=== PATIENT | female | born 2000 | race Caucasian/White ===

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

== ENCOUNTER 2019-09-03 17:07 | Outpatient (REF) | payer MEDICAID, SELFPAY ==
[2019-09-05 15:19] LABS: Chlamydia Result Negative (Negative); GC Result Negative (Negative)
== END 2019-09-03 17:27 ==
LOC: LBN 17:07
PROVIDERS: PCP Pediatrics; Visit Provider Nurse Practitioner Women's Health
DX: Z11.3 Encounter for screening for infections with a predominantly sexual mode of transmission (principal)
CPT/HCPCS: 87491; 87591

== ENCOUNTER 2019-09-28 14:29 | Outpatient (REF) | payer MEDICAID, SELFPAY | END 2019-09-28 14:49 | LOC: LBN 14:29 | PROVIDERS: PCP Pediatrics; Visit Provider Obstetrics & Gynecology | DX: L02.214 Cutaneous abscess of groin (principal) | CPT/HCPCS: 87070; 87205 ==

== ENCOUNTER 2019-10-19 14:50 | Outpatient (REF) | payer MEDICAID, SELFPAY | END 2019-10-19 15:10 | LOC: LBN 14:50 | PROVIDERS: PCP Pediatrics; Visit Provider Obstetrics & Gynecology | DX: N76.4 Abscess of vulva (principal) | CPT/HCPCS: 87070; 87205 ==

== ENCOUNTER 2020-01-01 18:10 | Outpatient (REF) | payer MEDICAID, SELFPAY | END 2020-01-01 18:30 | LOC: LBN 18:10 | PROVIDERS: PCP Pediatrics; Visit Provider Obstetrics & Gynecology | DX: N82.5 Female genital tract-skin fistulae (principal) | CPT/HCPCS: 87070; 87205 ==

== ENCOUNTER 2020-01-18 02:02 | Outpatient (CLI) | payer MEDICAID, SELFPAY ==
--- NOTE | 2020-01-18 06:30 | DI.CT_ITS ---
EXAM: CT ABDOMEN PELVIS W CLINICAL HISTORY: Rule out fistula. Non-healing vulvar abscess,n82.5,female. TECHNIQUE: Imaging Protocol: Axial computed tomography images with coronal and sagittal reformatted images were created and reviewed CONTRAST MATERIAL: Intravenous: Omnipaque 350 Contrast volume:structured data in ml Oral: yes / no COMPARISON: US US SOFT TISS EXTREMITY/GROIN from 01/18/2020 FINDINGS: ABDOMEN: Lung Bases: Normal where visualized. Liver: Normal density. No measurable mass. Gallbladder and biliary tract: No radiodense calculus or dilation. Pancreas: Normal density, no abnormal calcifications or inflammatory process. Spleen: Normal. Kidneys: Normal size, contour and axis. No radiodense stones or obstructive uropathy. No masses seen. Adrenal glands: No masses seen. Abdominal Aorta: Abdominal portion non-dilated. PELVIS: Bladder: Symmetric distention, no gross wall thickening. Bowel: No obstruction or bowel wall thickening. Peritoneal cavity: No ascites, collection or mesenteric inflammatory response. Bones: Within normal limits. Reproductive organs: Within normal limits. Lymph nodes: Unremarkable. Soft tissues: There is visible skin thickening at the right side of the labia but no evidence an absc ess. There is no evidence of a fistula. Impression: Skin thickening on the right side of the labia. No visible abscess. No evidence of a fistula. Othe rwise unremarkable CT scan of the abdomen and pelvis. RADIATION DOSE DELIVERED: 537.12mGy.cm Total DLP DATA REPOSITORY: All CT scans at this facility are submitted to the National Radiology Data Registry (NRDR) Dose Index Registry (DIR) with the [employer] ([employer]). RADIATION OPTIMIZATION: All CT scans at this facility use at least one of these dose optimization te chniques: automated exposure control; mA and/or kV adjustment per patient size (includes targeted exa ms where dose is matched to clinical indication); or iterative reconstruction.
--- NOTE | 2020-01-18 06:30 | DI.US_ITS ---
EXAM: US SOFT TISS EXTREMITY/GROIN CLINICAL HISTORY: Evaluate non-healing abscess right groin,n82.5,female genital tract skin. TECHNIQUE: Ultrasound was performed using standard protocol. COMPARISON: No exams were available for comparison FINDINGS: Sonographic assessment utilizing grayscale and color Doppler imaging was performed and targeted to th e area of clinical concern. Ill-defined areas of decreased echogenicity are seen in the subcutaneous tissues of the right labia. In the area of the incision, the area measures 2.4 x 0.4 cm. There is no internal blood flow. There i s a 2nd area corresponding to palpable lump which measures 2.9 x 0.5 cm. There is some adjacent blood flow. No focal fluid collection is seen to suggest an abscess. IMPRESSION: Areas of ill-defined decreased echogenicity in the subcutaneous tissues of the right labia. This may represent edema or postsurgical changes. No focal fluid collection is seen to suggest an abscess at t his time. DATA REPOSITORY:
[2020-01-18] MEDS: Omnipaque 350 MG/ML 100 ML BTL IJ (15:45)
[2020-01-18] MEDS: Omnipaque 350 MG/ML 50 ML BTL IJ (15:46)
[2020-01-18] MEDS: Breeza Beverage 473 ML BTL PO (15:48)
== END 2020-01-18 02:22 ==
PROVIDERS: PCP Nurse Practitioner Pediatrics; Visit Provider Obstetrics & Gynecology
DX: N82.5 Female genital tract-skin fistulae (principal); R60.0 Localized edema
CPT/HCPCS: 76882; 74177; J3490; Q9967

== ENCOUNTER 2020-02-18 08:13 | Outpatient (CLI) | payer MEDICAID, SELFPAY ==
[2020-02-19 19:46] LABS: COVID-19 RT-PCR UVMMC Result Negative (Negative)
== END 2020-02-18 08:33 ==
PROVIDERS: PCP Nurse Practitioner Pediatrics; Visit Provider Obstetrics & Gynecology
DX: Z01.818 Encounter for other preprocedural examination (principal); Z11.59 Encounter for screening for other viral diseases
CPT/HCPCS: 36415; 86850; 86900; 86901; U0003; 85025

== ENCOUNTER 2020-02-20 10:36 | Day surgery (SDC) | payer MEDICAID, SELFPAY ==
[2020-02-20] VITALS (7 sets, daily range): BP systolic 102–135; BP diastolic 54–88; PULSE 54–78; RESP 10–16; TEMP 36.6–36.7; O2SAT 95–98
[2020-02-20] MEDS: Lactated Ringers 1,000 ML 125 ML IV (11:27)
[2020-02-20] MEDS: ceFAZolin 1 GM/50 ML BAG IVPB (13:21)
[2020-02-20] MEDS: Bupivacaine 0.25% Pres-Free 30 ML VIAL (13:50)
--- NOTE | 2020-02-20 15:21 | W.PM.DSUDISC ---
Discharge Plan Disposition Patient Disposition: HOME Condition: Good Discharge Details Reason For Visit: Vulvar abscess with fistula formation. Attending Provider: Waylon Rose Primary Care Provider: Miriam Corey Home Meds and New Rx's Prescriptions: New oxycodone-acetaminophen 5-325 mg Tablet 1 tab PO Q4H PRNQty: 25 RF: 0 Continued lamotrigine 50 mg tablet extended release 24hr 50 mg PO DAILY RF: 0 levetiracetam 500 mg tablet 500 mg PO DAILY RF: 0 norethindrone (contraceptive) 0.35 mg tablet 0.35 mg PO DAILY Qty: 84 RF: 5 ibuprofen 600 mg tablet 600 mg PO Q6H PRN (Reason: pain) Qty: 30 RF: 1 clindamycin HCl 150 mg capsule 150 mg PO TID 10 Days Qty: 30 RF: 0 sumatriptan succinate [Imitrex] 50 MG tablet 50 mg PO ONCE PRNQty: 6 RF: 0 albuterol sulfate [ProAir HFA] 8.5 GM HFA aerosol inhaler 2 puff Inhalation Q4H PRN Qty: 1 RF: 3 (DME) Inhaler, Assist Devices [Aerochamber Mini] 1 EACH spacer 1 ea Miscellaneous Q4H PRN Qty: 1 RF: 0 Discharge Instructions Activity:: See sheet Diet:: As Tolerated Discharge Orders Discharge Orders: Discharge Order (Routine); Ordered 02/20/20 Ordered By: Waylon Rose DS: Diagnosis Discharge Diagnosis (1) Vulvar abscess: Status: Acute
--- NOTE | 2020-02-21 12:47 | ROE_ITS ---
Date of service: 02/20/20 Time of Service: 16:00 Operative Note Operative Note DATE OF PROCEDURE: 02/20/20 PRE-OP DIAGNOSIS: 1. 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 Incision and drainage of abscess. 2. Fistulectomy SURGEON: Waylon Rose ASSISTING SURGEON: Crystal Lane ANESTHESIA: GETA ESTIMATED BLOOD LOSS: 50 PATHOLOGY: none sent COMPLICATIONS: None Patient was transported to: PACU Patient's condition: stable Implants: [place] drain x 3 Findings: Induration along the right vulva with 2 fistulous tracts to the crural fold. Procedure Description: The patient was taken to the operating room and after adequate general anesthesia the patient was placed in lithotomy position. The patient was prepped and draped in the usual sterile manner. Exam under anesthesia was performed demonstrating areas of chronic induration from the vulvar abscess along almost the entire length of the right labium majus. In the right crural fold there were 2 fistulous openings. With use of a sterile catheter, methylene blue was injected into each of these fistulas. The superior fistula was noted to fill a defect on the superior aspect of the labium majus. The inferior fistulous tract to the base of the right labia. 3 sites were marked with a marking pen and elliptical incisions were made to open the sites. The tracts of the fistulas were easily identified with the methylene blue. Abscess cavities were opened and debrided back to bleeding tissue. The fistulas were tunneled free and excised through debridement and use of cautery. This was carried out for both the superior and inferior fistulas. When it was felt that each pocket had been satisfactorily debrided back to bleeding tissue and then no remaining epithelialized tract remained each incision was closed with 3-0 Vicryl suture and each had 1/4 inch [place] drain placed. Each David drain was sutured to the skin with a single interrupted suture of 3-0 Vicryl. A right pudendal block was performed with 10 cc of 0.25% Marcaine solution prior to completing the case. Sponge, lap and needle counts were correct at the conclusion of the procedure and the patient was transferred to PACU in stable condition.
== END 2020-02-20 16:37 | disposition home or self-care (01) ==
PROVIDERS: PCP Nurse Practitioner Pediatrics; Visit Provider Obstetrics & Gynecology
PROC: (CPT 56740; principal; 2020-02-20 12:00)
DX: N76.4 Abscess of vulva (principal); L98.8 Other specified disorders of the skin and subcutaneous tissue
CPT/HCPCS: 11420; 56405; 81025; J0690; J1100; J1885; J2001; J2250; J2405; J2704

== ENCOUNTER 2021-08-29 17:09 | Emergency (ER) | payer MEDICAID, SELFPAY ==
[2021-08-29 17:14] VITALS: BP 117/83; PULSE 119; RESP 18; TEMP 37.6; O2SAT 95
[2021-08-29 17:44] LABS: Bilirubin Negative (Negative); Blood Trace-intact (Negative); Clarity Clear (Clear); Glucose Negative (Negative); Ketones Negative (Negative); Leukocyte Esterase Negative (Negative); Nitrite Negative (Negative); Specific Gravity 1.025 (1.005-1.025); Urobilinogen 0.2 EU/dL (Up TO 0.2)
[2021-08-29] MEDS: Normal Saline 1,000 ML 1000 ML IV ×2 (17:48→18:27)
[2021-08-29] MEDS: Ondansetron 4 MG/2 ML VIAL IVP (17:49)
[2021-08-29 17:53] LABS: Bacteria Negative HPF (Negative); C & S Indicated? No; Casts Negative LPF (Negative); Crystals Negative HPF (Negative); Epithelial Cells Few HPF (Negative); Mucus Negative (Negative); Other Cells Negative (Negative); WBC 0-2 HPF (0-5)
[2021-08-29 18:16] LABS: Abs Immature Grans 0.04 10^3/uL (0.0-0.06); Absolute Basophil Count 0.03 10^3/uL (0.0-0.2); Absolute Eosinophil Count 0.02 10^3/uL (0.0-0.7); Absolute Lymphocyte Count 0.47 10^3/uL (1.2-3.4); Absolute Monocyte Count 1.27 10^3/uL (0.1-0.8); Absolute Neutrophil Count 7.55 10^3/uL (1.2-6.7); Basophils % 0.3; Eosinophils % 0.2; HCT 42.9 % (36.0-46.0); HGB 14.7 g/dL (11.2-15.7); Immature Grans % 0.4; MCH 32.2 pg (27.0-33.0); MCHC 34.3 % (32.0-36.0); MCV 93.9 fL (80-95); MPV 9.1 fL (8.0-11.0); Monocytes % 13.5; Neutrophils % 80.6; Nucleated RBC 0 %; Platelet Count 236 10^3/uL (130-400); RBC 4.57 10^6/uL (3.93-5.22); RDW 11.2 % (11.7-14.6); RDW-SD 38.5 fL; WBC 9.38 10^3/uL (4.4-10.8)
[2021-08-29 18:25] LABS: ETHANOL BLOOD 3.1 mg/dL (<10)
[2021-08-29] MEDS: Ketorolac 30 MG/ML VIAL IVP (18:27)
[2021-08-29 18:29] LABS: ALT 36 U/L (14-59); AST 32 U/L (15-37); Albumin 4.4 g/dL (3.4-5.0); Alkaline Phosphatase 65 U/L (46-116); Anion Gap 10.4 mmol/L (3-11); BUN 10 mg/dL (7-18); Bilirubin, Total 0.3 mg/dL (0.2-1.0); CO2 26.6 mmol/L (21.0-32.0); CREATININE 0.8 mg/dL (0.55-1.02); Calcium 8.9 mg/dL (8.5-10.1); Chloride 102 mmol/L (98-107); Glucose 94 mg/dL (74-106); Lipase 48 U/L (73-393); Potassium 3.8 mmol/L (3.5-5.1); Sodium 139 mmol/L (136-145); Total Protein 8.1 g/dL (6.4-8.2)
--- NOTE | 2021-08-29 18:57 | W.ED.GENAD ---
Discharge Plan Disposition Patient Disposition: HOME Condition: Improving Discharge Details Clinical Impression: Myalgia Primary Care Provider: Ruby Willams ED Provider: Shaun Bender Home Meds and New Rx's Prescriptions: Continued lamotrigine 50 mg tablet extended release 24hr 50 mg PO DAILY RF: 0 norethindrone (contraceptive) 0.35 mg tablet 0.35 mg PO DAILY Qty: 84 RF: 5 ibuprofen 600 mg tablet 600 mg PO Q6H PRN (Reason: pain) Qty: 30 RF: 1 naltrexone 50 mg tablet 50 mg PO DAILY Qty: 30 RF: 5 albuterol sulfate [ProAir HFA] 8.5 GM HFA aerosol inhaler 2 puff Inhalation Q4H PRN Qty: 1 RF: 3 (DME) Inhaler, Assist Devices [Aerochamber Mini] 1 EACH spacer 1 ea Miscellaneous Q4H PRN Qty: 1 RF: 0 Discharge Instructions Additional Instructions: At this time your laboratory values do not reveal any obvious emergent process. Your Covid test is pending, I recommend if you quarantine until this test has resulted negative hopefully in the next 2-3 days. Rest, plenty of fluids to avoid dehydration, [id number] Tylenol and/or Motrin as directed for discomfort. Please watch for new or worsening symptoms and return to the ER for any concerns. Lastly, please reach out your primary care provider on Tuesday to make them aware of the ER visit, ongoing symptoms, need for outpatient reevaluation Medical Decision Making 20-year-old female presents for evaluation of subjective fever, feeling chills, myalgias, worse in her back and lower extremities, vomiting x1. Significant other with similar symptoms couple of days ago. Patient clinically appears well, nontoxic, neurologically intact, afebrile. She is questioning how long her ER visit will be and is concerned about the person waiting for her. I explained to her given her subjective complaints, lack of p.o. intake, I believe obtaining IV access, giving IV Zofran and fluids and obtain routine laboratory values is reasonable. Given her subjective fever, chills, myalgias, will also obtain a send out Covid swab. She is comfortable with this plan. Laboratory values are unremarkable for any obvious emergent process. No leukocytosis or anemia. No electrolyte abnormality. Creatinine 0.8 with a GFR greater than 60. Patient with trace blood in her urine, 5-10 red cells. Examination is not consistent with renal stone. Patient received 1 L IV fluid, heart rate now 96. She reports no nausea or vomiting while here. She was given IV Toradol as well. After she received the fluid, reports that only mild pain in her back remains but there is no aching in her legs whatsoever. Patient then received her Toradol and reported that she was essentially asymptomatic and requesting discharge. Send out Covid is pending, recommend quarantining until this has resulted negative. Discussed the importance of resting, adequate hydration, [id number] medications such as Tylenol and/or Motrin. Encouraged to return to the ER for new or worsening symptoms, otherwise she will reach out to her primary care provider on Tuesday to discuss her ER visit need for outpatient reevaluation. Patient without any additional questions or concerns and is comfortable with this plan. Standard discharge and return precautions. This documentation was generated using [employer] dictation system, please disregard any oddities of phrase or misspellings. Medical Records Medical records reviewed: Yes I reviewed the patient's medical records. Lab Data Lab results reviewed: Yes I reviewed the patient's lab results. Labs: Laboratory Tests Range/Units 08/29/21 08/29/21 08/29/21 17:30 17:45 17:45 WBC (4.4-10.8) 10^3/uL 9.38 RBC (3.93-5.22) 10^6/uL 4.57 Hgb (11.2-15.7) g/dL 14.7 Hct (36.0-46.0) % 42.9 MCV (80-95) fL 93.9 MCH (27.0-33.0) pg 32.2 MCHC (32.0-36.0) % 34.3 RDW (11.7-14.6) % 11.2 L Plt Count (130-400) 10^3/uL 236 MPV (8.0-11.0) fL 9.1 Immature Gran % 0.4 Neutrophils % 80.6 Lymphocytes % 5.0 Monocytes % 13.5 Eosinophils % 0.2 Basophils % 0.3 Nucleated RBC % % 0 Absolute Neutrophils (1.2-6.7) 10^3/uL 7.55 H Absolute Lymphocytes (1.2-3.4) 10^3/uL 0.47 L Absolute Monocytes (0.1-0.8) 10^3/uL 1.27 H Absolute Eosinophils (0.0-0.7) 10^3/uL 0.02 Absolute Basophils (0.0-0.2) 10^3/uL 0.03 Sodium (136-145) mmol/L 139 Potassium (3.5-5.1) mmol/L 3.8 Chloride (98-107) mmol/L 102 Carbon Dioxide (21.0-32.0) mmol/L 26.6 Anion Gap (3-11) mmol/L 10.4 BUN (7-18) mg/dL 10 Creatinine (0.55-1.02) mg/dL 0.8 Estimated GFR/1.73 m2 (mL/min/1.73m2) >= 60.00 Glucose (74-106) mg/dL 94 Calcium (8.5-10.1) mg/dL 8.9 Total Bilirubin (0.2-1.0) mg/dL 0.3 AST (15-37) U/L 32 ALT (14-59) U/L 36 Alkaline Phosphatase (46-116) U/L 65 Total Protein (6.4-8.2) g/dL 8.1 Albumin (3.4-5.0) g/dL 4.4 Lipase (73-393) U/L 48 Urine Color (Yellow) Yellow Urine Clarity (Clear) Clear Urine pH (5-8) 7.0 Ur Specific [place] (1.005-1.025) 1.025 Urine Protein (Negative) mg/dL Negative Urine Ketones (Negative) mg/dL Negative Urine Blood (Negative) Trace-intact H Urine Nitrite (Negative) Negative Urine Bilirubin (Negative) Negative Urine Urobilinogen (Up TO 0.2) EU/dL 0.2 Ur Leukocyte Esterase (Negative) Negative Urine RBC (0-2) HPF 5-10 H Urine WBC (0-5) HPF 0-2 Ur Epithelial Cells (Negative) HPF Few Urine Crystals (Negative) HPF Negative Urine Bacteria (Negative) HPF Negative Urine Casts (Negative) LPF Negative Urine Mucus (Negative) Negative Urine Other (Negative) Negative Ur Culture Indicated? No Urine Glucose (Negative) mg/dL Negative Ethyl Alcohol (<10) mg/dL Range/Units 08/29/21 08/29/21 17:45 18:06 WBC (4.4-10.8) 10^3/uL RBC (3.93-5.22) 10^6/uL Hgb (11.2-15.7) g/dL Hct (36.0-46.0) % MCV (80-95) fL MCH (27.0-33.0) pg MCHC (32.0-36.0) % RDW (11.7-14.6) % Plt Count (130-400) 10^3/uL MPV (8.0-11.0) fL Immature Gran % Neutrophils % Lymphocytes % Monocytes % Eosinophils % Basophils % Nucleated RBC % % Absolute Neutrophils (1.2-6.7) 10^3/uL Absolute Lymphocytes (1.2-3.4) 10^3/uL Absolute Monocytes (0.1-0.8) 10^3/uL Absolute Eosinophils (0.0-0.7) 10^3/uL Absolute Basophils (0.0-0.2) 10^3/uL Sodium (136-145) mmol/L Potassium (3.5-5.1) mmol/L Chloride (98-107) mmol/L Carbon Dioxide (21.0-32.0) mmol/L Anion Gap (3-11) mmol/L BUN (7-18) mg/dL Creatinine (0.55-1.02) mg/dL Estimated GFR/1.73 m2 (mL/min/1.73m2) Glucose (74-106) mg/dL Calcium (8.5-10.1) mg/dL Total Bilirubin (0.2-1.0) mg/dL AST (15-37) U/L ALT (14-59) U/L Alkaline Phosphatase (46-116) U/L Total Protein (6.4-8.2) g/dL Albumin (3.4-5.0) g/dL Lipase (73-393) U/L Urine Color (Yellow) Cancelled Urine Clarity (Clear) Cancelled Urine pH (5-8) Cancelled Ur Specific [place] (1.005-1.025) Cancelled Urine Protein (Negative) mg/dL Cancelled Urine Ketones (Negative) mg/dL Cancelled Urine Blood (Negative) Cancelled Urine Nitrite (Negative) Cancelled Urine Bilirubin (Negative) Cancelled Urine Urobilinogen (Up TO 0.2) EU/dL Cancelled Ur Leukocyte Esterase (Negative) Cancelled Urine RBC (0-2) HPF Urine WBC (0-5) HPF Ur Epithelial Cells (Negative) HPF Urine Crystals (Negative) HPF Urine Bacteria (Negative) HPF Urine Casts (Negative) LPF Urine Mucus (Negative) Urine Other (Negative) Ur Culture Indicated? Urine Glucose (Negative) mg/dL Cancelled Ethyl Alcohol (<10) mg/dL 3.1 HPI General Mode of arrival: ambulatory. Date/Time Provider Initiated Documentation: 08/29/21 17:09. Limitations to Documentation: no limitations. Information obtained by: patient. HPI Narrative: This is a 20-year-old female, past medical history of seizure disorder, vapes and drinks alcohol daily, not vaccinated against Covid, presenting to the ER reporting subjective fever, feels chilled, body aches worse in her lower back and radiates down both legs. Patient states that her symptoms began this morning. She vomited x1 today. She states that her significant other had similar symptoms just a couple of days ago but his symptoms have resolved. She denies a documented fever, headache, neck pain, sore throat, cough, shortness of breath, abdominal pain, dysuria, hematuria, vaginal bleeding or discharge. Patient states that she took Tylenol x1 this morning. Denies any rash, swelling in her legs. She denies any p.o. intake Related Data Home Medications Medication Instructions Recorded Confirmed albuterol sulfate [ProAir HFA] 2 puff INHALATION Q4H PRN #1 06/21/17 08/29/21 inhaler lamotrigine 50 mg tablet,extended 50 mg PO DAILY tab 06/21/18 08/29/21 release 24 hr norethindrone (contraceptive) 0.35 0.35 mg PO DAILY #84 tab 09/03/19 08/29/21 mg tablet ibuprofen 600 mg tablet 600 mg PO Q6H PRN #30 tab 02/08/20 08/29/21 naltrexone 50 mg tablet 50 mg PO DAILY #30 tab 08/04/21 08/29/21 Previous Rx's Medication Instructions Recorded albuterol sulfate [ProAir HFA] 2 puff INHALATION Q4H PRN #1 06/21/17 inhaler norethindrone (contraceptive) 0.35 0.35 mg PO DAILY #84 tab 09/03/19 mg tablet ibuprofen 600 mg tablet 600 mg PO Q6H PRN #30 tab 02/08/20 naltrexone 50 mg tablet 50 mg PO DAILY #30 tab 08/04/21 Allergies Allergy/AdvReac Type Severity Reaction Status Date / Time No Known Allergies Allergy Verified 08/29/21 17:18 General Stated Complaint: Fever MARGARITA: 3 Review of Systems Constitutional Constitutional: Denies headache(s) ENT Ears, Nose, Mouth, and Throat: Denies headache(s) and Denies neck pain Cardiovascular Cardiovascular: Denies chest pain and Denies dyspnea Respiratory Respiratory: Denies cough and Denies dyspnea Gastrointestinal Gastrointestinal: Denies abdominal pain Genitourinary Genitourinary: Denies dysuria Musculoskeletal Musculoskeletal: Reports back pain and Denies neck pain Neurologic Neurologic: Denies headache(s) PFSH All Active Problems Myalgia (Acute) Alcohol intake above recommended sensible limits (Acute) Exercise-induced asthma (Acute 05/27/15) Seizure disorder (Chronic) is followed closely by neuro - no particular concerns today. no seizures since started meds Tobacco use (Acute) Vapes- 8000 puffs Medical History Acute alcohol intoxication (06/09/14) ADHD (attention deficit hyperactivity disorder) focalin previously, stopped 2018 Anxiety Astigmatism (10/01/14) glasses Concussion (05/25/13) Depressive disorder (06/09/14) Age 15-stable not on meds Female genital tract-skin fistula abscess- 2019 History of self injurious behavior Age 15 Osteochondropathy (05/18/12) Temporal lobe epilepsy Dr. Sheffield at [facility] f/u has grand mal seizures in her sleep, controlled with meds, last seizure 06/10/18. Surgical History Arthroplasty of knee cyst removed left knee- 1999 Family History Other Essential hypertension maternal side Heart disease MGF Hyperlipidemia PGM Neoplasm Stroke mat great GF Asthma mat aunt Mother Essential hypertension Personal history of malignant neoplasm cervical Mental disorder Sister Mental disorder Father Substance abuse Diabetes Mental disorder Asthma Grandparent Essential hypertension Diabetes Hyperlipidemia Mental disorder Neoplasm Brother No problems noted. Maternal Grandfather No problems noted. Paternal Grandfather No problems noted. Maternal Grandmother No problems noted. 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 Pets and animals: Yes Pets and animals: cat(s), dog(s) and ferret(s) Sexually active: Yes Do you think of yourself as: straight/heterosexual Current gender identity: female What is your relationship status?: living with partner How often do you talk on the phone with friends or family?: decline to answer How often do you get together with friends or relatives?: decline to answer How often do you attend episcopal or synagogue services?: decline to answer Do you belong to any clubs or organized social groups?: no Panel score (0-1 are the most socially isolated patients): 1 What type of physical activity do you participate in: none Adri/Nondenominational: No preference Special adri needs: No Seatbelt use: always Helmet use: Yes Helmet use: always Drive intox or ride w/intox armored car guard and driver: No Do you feel safe at home: Yes Do you feel safe in your relationship?: Yes Exam Const General: cooperative, healthy appearing, comfortable and no acute distress Orientation: alert and awake [facility] Head: normal to inspection, normocephalic and atraumatic Face and sinus: normal facial exam Mouth: moist mucous membranes abnormal (Slightly dry) Throat: posterior oropharynx normal Eyes General: appearance normal, both eyes and all related structures Conjunctivae: conjunctivae normal Neck Neck: normal visual inspection, full ROM, no meningeal signs, trachea midline and supple Resp Effort & Inspection: normal respiratory effort and able to speak in complete sentences Auscultation: clear to auscultation bilaterally Cardio Rate: regular rate (92) Rhythm: regular rhythm GI Inspection: normal to inspection Palpation: soft, not firm, no guarding, no pulsatile masses and nontender Auscultation: normal bowel sounds Back/Spine/Pelvis Back: back tenderness Skin General skin exam: no rashes or lesions noted Neuro General: patient alert, patient awake, patient oriented x3, moves all extremities and no focal motor deficits Cognition: normal cognition Speech: speech normal Gait: normal gait Motor: muscle tone normal throughout Sensory Exam: no sensory deficits noted Extrem General: normal to inspection, full ROM, capillary refill normal, no pedal edema and no calf tenderness Psych Appearance: grossly normal Mental Status: mental status grossly normal Course Vital Signs Vital signs: Vital Signs Temperature 37.6 C 08/29/21 17:14 Pulse 119 H 08/29/21 17:14 Respiratory Rate 18 08/29/21 17:14 Blood Pressure 117/83 08/29/21 17:14 Pulse Oximetry 95 08/29/21 17:14 Temperature 37.6 C 08/29/21 17:14 Temperature Source Oral 08/29/21 17:14 Pulse 119 H 08/29/21 17:14 Respiratory Rate 18 08/29/21 17:14 Respiratory Effort 08/29/21 17:20 Blood Pressure 117/83 08/29/21 17:14 Blood Pressure Position Sitting 08/29/21 17:14 Pulse Oximetry 95 08/29/21 17:14 Oxygen Delivery Method Room Air 08/29/21 17:14 Oxygen Flow Rate 0 08/29/21 17:14 Lab/Test Results Lab/Test Results: Laboratory Tests Range/Units 08/29/21 08/29/21 08/29/21 17:30 17:45 17:45 WBC (4.4-10.8) 10^3/uL 9.38 RBC (3.93-5.22) 10^6/uL 4.57 Hgb (11.2-15.7) g/dL 14.7 Hct (36.0-46.0) % 42.9 MCV (80-95) fL 93.9 MCH (27.0-33.0) pg 32.2 MCHC (32.0-36.0) % 34.3 RDW (11.7-14.6) % 11.2 L Plt Count (130-400) 10^3/uL 236 MPV (8.0-11.0) fL 9.1 Immature Gran % 0.4 Neutrophils % 80.6 Lymphocytes % 5.0 Monocytes % 13.5 Eosinophils % 0.2 Basophils % 0.3 Nucleated RBC % % 0 Absolute Neutrophils (1.2-6.7) 10^3/uL 7.55 H Absolute Lymphocytes (1.2-3.4) 10^3/uL 0.47 L Absolute Monocytes (0.1-0.8) 10^3/uL 1.27 H Absolute Eosinophils (0.0-0.7) 10^3/uL 0.02 Absolute Basophils (0.0-0.2) 10^3/uL 0.03 Sodium (136-145) mmol/L 139 Potassium (3.5-5.1) mmol/L 3.8 Chloride (98-107) mmol/L 102 Carbon Dioxide (21.0-32.0) mmol/L 26.6 Anion Gap (3-11) mmol/L 10.4 BUN (7-18) mg/dL 10 Creatinine (0.55-1.02) mg/dL 0.8 Estimated GFR/1.73 m2 (mL/min/1.73m2) >= 60.00 Glucose (74-106) mg/dL 94 Calcium (8.5-10.1) mg/dL 8.9 Total Bilirubin (0.2-1.0) mg/dL 0.3 AST (15-37) U/L 32 ALT (14-59) U/L 36 Alkaline Phosphatase (46-116) U/L 65 Total Protein (6.4-8.2) g/dL 8.1 Albumin (3.4-5.0) g/dL 4.4 Lipase (73-393) U/L 48 Urine Color (Yellow) Yellow Urine Clarity (Clear) Clear Urine pH (5-8) 7.0 Ur Specific [place] (1.005-1.025) 1.025 Urine Protein (Negative) mg/dL Negative Urine Ketones (Negative) mg/dL Negative Urine Blood (Negative) Trace-intact H Urine Nitrite (Negative) Negative Urine Bilirubin (Negative) Negative Urine Urobilinogen (Up TO 0.2) EU/dL 0.2 Ur Leukocyte Esterase (Negative) Negative Urine RBC (0-2) HPF 5-10 H Urine WBC (0-5) HPF 0-2 Ur Epithelial Cells (Negative) HPF Few Urine Crystals (Negative) HPF Negative Urine Bacteria (Negative) HPF Negative Urine Casts (Negative) LPF Negative Urine Mucus (Negative) Negative Urine Other (Negative) Negative Ur Culture Indicated? No Urine Glucose (Negative) mg/dL Negative Ethyl Alcohol (<10) mg/dL Range/Units 08/29/21 08/29/21 17:45 18:06 WBC (4.4-10.8) 10^3/uL RBC (3.93-5.22) 10^6/uL Hgb (11.2-15.7) g/dL Hct (36.0-46.0) % MCV (80-95) fL MCH (27.0-33.0) pg MCHC (32.0-36.0) % RDW (11.7-14.6) % Plt Count (130-400) 10^3/uL MPV (8.0-11.0) fL Immature Gran % Neutrophils % Lymphocytes % Monocytes % Eosinophils % Basophils % Nucleated RBC % % Absolute Neutrophils (1.2-6.7) 10^3/uL Absolute Lymphocytes (1.2-3.4) 10^3/uL Absolute Monocytes (0.1-0.8) 10^3/uL Absolute Eosinophils (0.0-0.7) 10^3/uL Absolute Basophils (0.0-0.2) 10^3/uL Sodium (136-145) mmol/L Potassium (3.5-5.1) mmol/L Chloride (98-107) mmol/L Carbon Dioxide (21.0-32.0) mmol/L Anion Gap (3-11) mmol/L BUN (7-18) mg/dL Creatinine (0.55-1.02) mg/dL Estimated GFR/1.73 m2 (mL/min/1.73m2) Glucose (74-106) mg/dL Calcium (8.5-10.1) mg/dL Total Bilirubin (0.2-1.0) mg/dL AST (15-37) U/L ALT (14-59) U/L Alkaline Phosphatase (46-116) U/L Total Protein (6.4-8.2) g/dL Albumin (3.4-5.0) g/dL Lipase (73-393) U/L Urine Color (Yellow) Cancelled Urine Clarity (Clear) Cancelled Urine pH (5-8) Cancelled Ur Specific [place] (1.005-1.025) Cancelled Urine Protein (Negative) mg/dL Cancelled Urine Ketones (Negative) mg/dL Cancelled Urine Blood (Negative) Cancelled Urine Nitrite (Negative) Cancelled Urine Bilirubin (Negative) Cancelled Urine Urobilinogen (Up TO 0.2) EU/dL Cancelled Ur Leukocyte Esterase (Negative) Cancelled Urine RBC (0-2) HPF Urine WBC (0-5) HPF Ur Epithelial Cells (Negative) HPF Urine Crystals (Negative) HPF Urine Bacteria (Negative) HPF Urine Casts (Negative) LPF Urine Mucus (Negative) Urine Other (Negative) Ur Culture Indicated? Urine Glucose (Negative) mg/dL Cancelled Ethyl Alcohol (<10) mg/dL 3.1 POC- Test(urine) Negative PAWSS Have you Been Recently Intoxicated or Drunk Within the Last 30 days?: Yes Have you Ever Experienced Previous Episodes of Alcohol Withdrawal?: No Have you ever Experienced Withdrawal Seizures?: No Have you ever Experienced Delirium Tremens(DT)s?: No Have you ever undergone Alcohol Rehabilitation Treatment (i.e, inpt ot outpatient treatment programs)?: No Have you ever Combined Alcohol with other Downers within the last 90 days?: No Have you ever Combined Alcohol with any other Substance of Abuse during the last 90 days?: No Result: 1
[2021-08-29 19:22] VITALS: PULSE 87; RESP 16; O2SAT 96
[2021-08-31 11:56] LABS: COVID-19 RT-PCR UVMMC Result Positive (Negative)
--- NOTE | 2021-08-31 12:56 | W.ED.FU ---
Follow Up Plan: Patient contacted over the phone regarding her positive Covid test. Patient reports that she continues to have a sore throat but is overall feeling better, has not had further fevers. Counseled patient regarding return to emergency department precautions, home care, and importance of isolation to prevent transmission and outpatient follow-up. Patient verbalized understanding. All questions answered.
== END 2021-08-29 19:21 | disposition home or self-care (01) ==
PROVIDERS: Emergency Provider Physician Assistant; PCP Nurse Practitioner
DX: U07.1 COVID-19 (principal); R68.83 Chills (without fever); M79.18 Myalgia, other site; R11.10 Vomiting, unspecified
CPT/HCPCS: 36415; 80053; 81025; 83690; 96361; 96374; 96375; 99284; U0003; 80320; 81003; 81015; 85025; 99283; J1885; J2405

== ENCOUNTER 2021-11-17 16:17 | Outpatient (REF) | payer MEDICAID, SELFPAY ==
--- NOTE | 2021-11-17 16:08 | PAPFT_PTH ---
PATIENT: Yesi Guerrero LOC: [facility] U#:[id number] AGE/SX: 21/ ROOM: RE11/17/[address]: Lisa Dumont MD : 2000 BED: DIS: 11/17/2021 SPEC #: [id number] RECD: 11/17/21 18:14 STATUS: LUCILA REDayana #: [id number] LATOSHA: 11/17/21 16:[address]: Lisa Dumont DEPT: [facility] Cytology RECD BY: Ginny Saez ENTERED: 11/17/21 18:14 SP TYPE: PAPFT OTHR DR: Ruby Willams, PhD INSTRUMENT INSTALLER Tissues: 1 - CX/ENDOCX FOR PAP SMEARS Procedures: PAP THIN PREP/[facility] Screening Comments: [id number] (CHLAMYDIA/GC)
[2021-11-18 15:30] LABS: Chlamydia Result Negative (Negative); GC Result Negative (Negative)
[2021-11-19 15:00] LABS: Chlamydia Result Negative (Negative); GC Result Negative (Negative)
== END 2021-11-17 16:18 | disposition home or self-care (01) ==
LOC: LBN 16:17
PROVIDERS: PCP Nurse Practitioner; Visit Provider Obstetrics & Gynecology
DX: R10.2 Pelvic and perineal pain (principal); N89.8 Other specified noninflammatory disorders of vagina; Z11.3 Encounter for screening for infections with a predominantly sexual mode of transmission; Z12.4 Encounter for screening for malignant neoplasm of cervix
CPT/HCPCS: 87491; 87591; 88142; 87480; 87510; 87660

== ENCOUNTER 2022-03-30 19:22 | Emergency (ER) | payer MEDICAID, SELFPAY ==
[2022-03-30 19:24] VITALS: BP 123/78; PULSE 89; RESP 18; TEMP 36.9; O2SAT 100
--- NOTE | 2022-03-30 20:01 | W.ED.GENAD ---
Discharge Plan Disposition Patient Disposition: HOME Condition: Stable Discharge Details Clinical Impression: Pharyngitis Primary Care Provider: Ruby Willams ED Provider: Freeman Gama Home Meds and New Rx's Prescriptions: No Action lamotrigine 50 mg tablet extended release 24hr 50 mg PO DAILY ibuprofen 600 mg tablet 600 mg PO Q6H PRN (Reason: pain) Qty: 30 1RF naltrexone 50 mg tablet 50 mg PO DAILY Qty: 30 5RF Rx Instructions: 08/29/20 has not started norethindrone (contraceptive) 0.35 mg tablet 0.35 mg PO DAILY Qty: 84 5RF Label Comments: Pt reports I stopped taking it, so i wouldn't be wasting is, since I'm not having sex.HE metronidazole 500 mg tablet 500 mg PO BID Qty: 14 0RF albuterol sulfate [ProAir HFA] 8.5 GM HFA aerosol inhaler 2 puff Inhalation Q4H PRN Qty: 1 3RF Rx Instructions: 2 puffs with spacer every 4hr as needed for cough/wheeze (DME) Inhaler, Assist Devices [Aerochamber Mini] 1 EACH spacer 1 ea Miscellaneous Q4H PRN Qty: 1 0RF Rx Instructions: use with inhaler every 4hr as needed Discharge Instructions Instructions: Pharyngitis (ED) Additional Instructions: Continue to take the [id number] medications as discussed. If you have any new or significant worsening of symptoms feel free to return the emergency department for reassessment. We will contact you with your COVID results which typically take around 48 hours but may take longer depending on lab timing. Stand Alone Forms: Work Release Referrals: Ruby Willams, [employer]ICE PL[employer]BER [Primary Care Provider] - 1 week (As needed for reassessment or if not improving) Medical Decision Making Exam consistent with Pharyngitis. 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 Pt non toxic and stable. Patient reports that she had rapid testing for COVID performed but work is requesting PCR. PCR testing was sent but due to patient had a strep testing also done earlier today that was negative will not repeat this testing. Fever chills along with body aches and sore throat consistent with viral etiology. Exam does not seem consistent with bacterial so we will hold off on antibiotics. Encourage continue some [id number] medications with monitoring and follow-up precautions. Patient does have history of tonsillar stones which were noted in the right tonsil but I do not feel that this is causing patient's febrile illness. Patient recommend to follow-up with ENT and perform gargles for tonsillar stones. After discussion of diagnosis and plan of care patient has no further needs, questions, or concerns and states clear understanding to return to the emergency department for any worsening symptoms. This documentation was generated using TeamSnapation system, please disregard any oddities of phrase or misspellings. HPI General Mode of arrival: ambulatory. Date/Time Provider Initiated Documentation: 03/30/22 19:25. Limitations to Documentation: no limitations. Information obtained by: patient and RN notes reviewed. History of Present Illness 21 year old F presents to the emergency department with the chief complaint of Sore throat, described as moderate, with intensity rated at 6. Quality is described as aching, and is localized to the neck. Patient reports no radiation. Patient started experiencing this day(s) (3) and it has been constant. No relieving factors improve symptom(s), No exacerbating factors reported . Patient notes fever/chills; denies chest pain, cough, loss of appetite, nausea/vomiting and rash. Patient did receive the following treatments prior to arrival, NSAID Related Data Home Medications Medication Instructions Recorded Confirmed albuterol sulfate 90 mcg/actuation 2 puff inhalation Q4H PRN ##1 06/21/17 03/30/22 aerosol inhaler (ProAir HFA) lamotrigine 50 mg tablet,extended 50 mg PO DAILY 06/21/18 11/17/21 release 24 hr ibuprofen 600 mg tablet 600 mg PO Q6H PRN pain #30 tabs 02/08/20 11/17/21 naltrexone 50 mg tablet 50 mg PO DAILY #30 tabs 08/04/21 11/17/21 metronidazole 500 mg tablet 500 mg PO BID #14 tabs 11/17/21 11/17/21 norethindrone (contraceptive) 0.35 0.35 mg PO DAILY #84 tabs 11/17/21 03/30/22 mg tablet Previous Rx's Medication Instructions Recorded albuterol sulfate 90 mcg/actuation 2 puff inhalation Q4H PRN ##1 06/21/17 aerosol inhaler (ProAir HFA) ibuprofen 600 mg tablet 600 mg PO Q6H PRN pain #30 tabs 02/08/20 naltrexone 50 mg tablet 50 mg PO DAILY #30 tabs 08/04/21 metronidazole 500 mg tablet 500 mg PO BID #14 tabs 11/17/21 norethindrone (contraceptive) 0.35 0.35 mg PO DAILY #84 tabs 11/17/21 mg tablet Allergies Allergy/AdvReac Type Severity Reaction Status Date / Time No Known Allergies Allergy Verified 11/17/21 15:30 General Stated Complaint: Sorethroat MARGARITA: 4 Review of Systems Constitutional Constitutional: Reports body ache(s), Reports chills, Reports fever(s), Denies headache(s) and Denies malaise ENT Ears, Nose, Mouth, and Throat: Reports as per HPI, Denies otalgia, Denies headache(s), Denies lip swelling, Reports nasal congestion, Denies nasal discharge, Denies neck pain, Reports sore throat, Denies throat swelling and Denies tongue swelling Cardiovascular Cardiovascular: Denies chest pain and Denies dyspnea Respiratory Respiratory: Denies cough, Denies dyspnea and Denies stridor Gastrointestinal Gastrointestinal: Denies abdominal pain, Denies diarrhea, Denies nausea and Denies vomiting Musculoskeletal Musculoskeletal: Denies back pain, Denies joint swelling and Denies neck pain Integumentary/Breasts Skin/Breast: Denies rash Neurologic Neurologic: Denies headache(s) Allergic/Immunologic Allergic/Immunologic: Denies lip swelling, Denies throat swelling and Denies tongue swelling PFSH All Active Problems Pharyngitis (Acute) Vaginitis (Acute) Exercise-induced asthma (Acute 05/27/15) Tobacco use (Acute) Vapes- 8000 puffs Medical History Acute alcohol intoxication (06/09/14) ADHD (attention deficit hyperactivity disorder) focalin previously, stopped 2018 Anxiety Astigmatism (10/01/14) glasses Concussion (05/25/13) Depressive disorder (06/09/14) Age 15-stable not on meds Female genital tract-skin fistula abscess- 2020 History of self injurious behavior Age 15 Osteochondropathy (05/18/12) Temporal lobe epilepsy Dr. Sheffield at [facility] f/u has grand mal seizures in her sleep, controlled with meds, last seizure 06/10/18. Surgical History Arthroplasty of knee cyst removed left knee- 1999 Family History Other Essential hypertension maternal side Heart disease MGF Hyperlipidemia PGM Neoplasm Stroke mat great GF Asthma mat aunt Mother Essential hypertension Personal history of malignant neoplasm cervical Mental disorder Sister Mental disorder Father Substance abuse Diabetes Mental disorder Asthma Grandparent Essential hypertension Diabetes Hyperlipidemia Mental disorder Neoplasm Brother No problems noted. Maternal Grandfather No problems noted. Paternal Grandfather No problems noted. Maternal Grandmother No problems noted. 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 Pets and animals: Yes Pets and animals: cat(s), dog(s) and ferret(s) Sexually active: Yes Do you think of yourself as: straight/heterosexual Current gender identity: female What is your relationship status?: living with partner How often do you talk on the phone with friends or family?: decline to answer How often do you get together with friends or relatives?: decline to answer How often do you attend voodoo or mandaeism services?: decline to answer Do you belong to any clubs or organized social groups?: no Panel score (0-1 are the most socially isolated patients): 1 What type of physical activity do you participate in: none Adri/Cheondoism: No preference Special adri needs: No Seatbelt use: always Helmet use: Yes Helmet use: always Drive 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 or ride w/intox 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: No Do you feel safe at home: Yes Do you feel safe in your relationship?: Yes Exam Const General: cooperative, healthy appearing, comfortable, no acute distress and not ill appearing Orientation: alert, awake and oriented x3 HENMT Head: normal to inspection and normocephalic Ears: hearing grossly normal bilaterally, external ears normal, TM's normal bilaterally and mastoids normal General nose exam: external nose normal and nares normal Face and sinus: normal facial exam and sinuses nontender Mouth: oral mucosae normal, lip normal, tongue normal, no audible dysphonia, no drooling and no trismus Teeth and gingiva: dentition normal Throat: uvula midline, abnormal tonsil on the right (Additional small tonsillar stones) and bilaterally erythema and hypertrophy 1+ and no peritonsillar masses Neck Neck: normal visual inspection, full ROM, no meningeal signs and lymphadenopathy (Slight anterior cervical) Resp Effort & Inspection: normal respiratory effort, able to speak in complete sentences and no stridor Auscultation: clear to auscultation bilaterally Cardio Rate: regular rate Rhythm: regular rhythm Heart Sounds: S1 normal and S2 normal Skin General skin exam: no rashes or lesions noted Course Vital Signs Vital signs: Vital Signs Temperature 36.9 C 03/30/22 19:24 Pulse 89 03/30/22 19:24 Respiratory Rate 18 03/30/22 19:24 Blood Pressure 123/78 03/30/22 19:24 Pulse Oximetry 100 03/30/22 19:24 Temperature 36.9 C 03/30/22 19:24 Temperature Source Temporal Artery Scan 03/30/22 19:24 Pulse 89 03/30/22 19:24 Respiratory Rate 18 03/30/22 19:24 Blood Pressure 123/78 03/30/22 19:24 Blood Pressure Position Sitting 03/30/22 19:24 Pulse Oximetry 100 03/30/22 19:24 Pain Level 6 03/30/22 19:24
[2022-04-01 11:07] LABS: COVID-19 RT-PCR UVMMC Result Negative (Negative)
== END 2022-03-30 20:27 | disposition home or self-care (01) ==
PROVIDERS: Emergency Provider Nurse Practitioner Family; PCP Nurse Practitioner
DX: J02.9 Acute pharyngitis, unspecified (principal); Z20.822 Contact with and (suspected) exposure to COVID-19; R50.9 Fever, unspecified
CPT/HCPCS: 99281; 99282; U0003

== ENCOUNTER 2023-01-21 22:45 | Emergency (ER) | payer MEDICAID, SELFPAY ==
[2023-01-21 22:50] VITALS: BP 150/107; PULSE 83; RESP 16; O2SAT 100
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
[2023-01-21 23:38] LABS: Abs Immature Grans 0.01 10^3/uL (0.0-0.06); Absolute Basophil Count 0.05 10^3/uL (0.0-0.2); Absolute Eosinophil Count 0.04 10^3/uL (0.0-0.7); Absolute Lymphocyte Count 1.65 10^3/uL (1.2-3.4); Absolute Monocyte Count 0.37 10^3/uL (0.1-0.8); Absolute Neutrophil Count 4.41 10^3/uL (1.2-6.7); Basophils % 0.8; Eosinophils % 0.6; HCT 46.1 % (36.0-46.0); HGB 15.9 g/dL (11.2-15.7); Immature Grans % 0.2; Lymphocytes % 25.3; MCH 32.1 pg (27.0-33.0); MCHC 34.5 % (32.0-36.0); MCV 93 fL (80-95); MPV 8.8 fL (8.0-11.0); Monocytes % 5.7; Neutrophils % 67.4; Platelet Count 331 10^3/uL (130-400); RBC 4.96 10^6/uL (3.93-5.22); RDW 11.9 % (11.7-14.6); RDW-SD 41.1 fL; WBC 6.53 10^3/uL (4.4-10.8)
[2023-01-21 23:40] LABS: Bilirubin Negative (Negative); Blood Trace-intact (Negative); Clarity Sl Cloudy (Clear); Glucose Negative (Negative); Ketones Negative (Negative); Leukocyte Esterase Negative (Negative); Nitrite Negative (Negative); Urobilinogen 0.2 mg/dL (Up to 0.2)
[2023-01-21 23:42] LABS: Bacteria Negative HPF (Negative); C & S Indicated? No; Casts Negative LPF (Negative); Crystals Negative HPF (Negative); Epithelial Cells Negative HPF (Negative); Mucus Negative (Negative); RBC 0-2 HPF (0-2); WBC Negative HPF (0-5)
[2023-01-21] MEDS: ACETAMINOPHEN 1,000 MG/100 ML BTL 400 MG IVPB (23:52)
[2023-01-21] MEDS: Normal Saline 1,000 ML 1000 ML IV (23:52)
[2023-01-21 23:55] LABS: *AMPHETAMINES SCREEN URINE Negative (Negative); *BARBITURATES SCREEN URINE Negative (Negative); *BENZODIAZEPINES SCREEN URINE Negative (Negative); Cannabinoids THC Negative (Negative); Cocaine Screen,Urine Negative (Negative); METHADONE URINE SCREEN Negative (Negative); OPIATES URINE SCREEN Negative (Negative)
[2023-01-21 23:55] LABS: ALT 31 U/L (14-59); AST 29 U/L (15-37); Albumin 4.4 g/dL (3.4-5.0); Alkaline Phosphatase 76 U/L (46-116); Anion Gap 5.5 mmol/L (3-11); BUN 13 mg/dL (7-18); Bilirubin, Total 0.4 mg/dL (0.2-1.0); CO2 31.5 mmol/L (21.0-32.0); CREATININE 0.8 mg/dL (0.55-1.02); Calcium 8.7 mg/dL (8.5-10.1); Chloride 103 mmol/L (98-107); ETHANOL BLOOD 230.1 mg/dL (<10); Estimated GFR 106.11 (mL/min/1.73m2); Glucose 103 mg/dL (74-106); Potassium 3.7 mmol/L (3.5-5.1); Sodium 140 mmol/L (136-145); Total Protein 8.8 g/dL (6.4-8.2)
[2023-01-21 23:58] LABS: Tricyclic Antidepressants Negative (Negative)
--- NOTE | 2023-01-22 00:36 | ED.GENADUL_ITS ---
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 Neutrophils % Lymphocytes % Monocytes % Eosinophils % Basophils % Nucleated RBC % (0.0-0.3) % Absolute Neutrophils (1.2-6.7) 10^3/uL Absolute Lymphocytes (1.2-3.4) 10^3/uL Absolute Monocytes (0.1-0.8) 10^3/uL Absolute Eosinophils (0.0-0.7) 10^3/uL Absolute Basophils (0.0-0.2) 10^3/uL Sodium (136-145) mmol/L Potassium (3.5-5.1) mmol/L Chloride (98-107) mmol/L Carbon Dioxide (21.0-32.0) mmol/L Anion Gap (3-11) mmol/L BUN (7-18) mg/dL Creatinine (0.55-1.02) mg/dL Est GFR (CKD-EPI 2020) (mL/min/1.73m2) Glucose (74-106) mg/dL Calcium (8.5-10.1) mg/dL Total Bilirubin (0.2-1.0) mg/dL AST (15-37) U/L ALT (14-59) U/L Alkaline Phosphatase (46-116) U/L Total Protein (6.4-8.2) g/dL Albumin (3.4-5.0) g/dL Urine Color (Yellow) Yellow Urine Clarity (Clear) Sl Cloudy Urine pH (5-8) 6.0 Ur Specific [place] (1.005-1.025) 1.010 Urine Protein (Negative) mg/dL Negative Urine Ketones (Negative) mg/dL Negative Urine Blood (Negative) Trace-intact H Urine Nitrite (Negative) Negative Urine Bilirubin (Negative) Negative Urine Urobilinogen (Up to 0.2) mg/dL 0.2 Ur Leukocyte Esterase (Negative) Negative Urine RBC (0-2) HPF 0-2 Urine WBC (0-5) HPF Negative Ur Epithelial Cells (Negative) HPF Negative Urine Crystals (Negative) HPF Negative Urine Bacteria (Negative) HPF Negative Urine Casts (Negative) LPF Negative Urine Mucus (Negative) Negative Ur Culture Indicated? No Urine Glucose (Negative) mg/dL Negative Urine Opiates Screen (Negative) Urine Methadone Screen (Negative) Ur Barbiturates Screen (Negative) Ur Tricyclics Screen (Negative) Ur Amphetamines Screen (Negative) U Benzodiazepines Scrn (Negative) Urine Cocaine Screen (Negative) Ur THC Screen (Negative) Ethyl Alcohol (<10) mg/dL POC- Test(urine) Negative
[2023-01-22] MEDS: Omnipaque 350 MG/ML 100 ML BTL IJ (00:47)
[2023-01-22] MEDS: Normal Saline - Diluent 50 ML VIAL IJ (00:48)
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
--- NOTE | 2023-01-22 01:42 | NUR.NOTE ---
Nursing Note:Pt asking for food. RN brought food and drink to pt. Pt yelling at RN stating, I don't want no [employer] macarena richardson crackers!
== END 2023-01-22 02:06 | disposition home or self-care (01) ==
PROVIDERS: Emergency Provider Student in an Organized Health Care Education/Training Program; PCP Nurse Practitioner Family
DX: S00.93XA Contusion of unspecified part of head, initial encounter (principal); S02.2XXA Fracture of nasal bones, initial encounter for closed fracture; S06.0X0A Concussion without loss of consciousness, initial encounter; L03.011 Cellulitis of right finger; R78.0 Finding of alcohol in blood; V89.2XXA Person injured in unspecified motor-vehicle accident, traffic, initial encounter
CPT/HCPCS: 74177; 80053; 80307; 81025; 96361; 96374; 99285; 70450; 70486; 71260; 72125; 72128; 73080; 73564; 80320; 81003; 81015; 85025; 99284; J0131; J3490